=== PATIENT | male | born 1940 | race Hispanic/Latino ===

== ENCOUNTER 2018-03-28 06:37 | Day surgery (SDC) | payer MEDICARE ==
[~2018-03-28 06:37] MED LIST: ANCEF/STERILE WATER 2 GM/20 ML 2 GM/20 ML SYRINGE IV NR; NACL 0.9% 1000 ML 1,000 ML IV SCH
[2018-03-28 07:32] LABS: Basophils % (Auto) 0.8 % (0.0-1.8); Eosinophils # (Auto) 0.1 K/mm3 (0.0-0.4); Eosinophils % (Auto) 1.9 % (0.0-4.3); Hematocrit 40.3 % (35.5-45.6); Hemoglobin 13.8 gm/dl (11.8-15.2); Lymphocytes # (Auto) 1.2 K/mm3 (1.2-5.4); Mean Corpuscular HGB Conc 34 % (32-34); Mean Corpuscular Hemoglobin 33 pg (28-32); Mean Corpuscular Volume 96 fl (84-94); Monocytes # (Auto) 0.3 K/mm3 (0.0-0.8); Monocytes % (Auto) 5.1 % (0.0-7.3); Platelet Count 144 K/mm3 (140-440); Red Blood Count 4.18 M/mm3 (3.65-5.03); Red Cell Distribution Width 14.6 % (13.2-15.2)
[2018-03-28 07:42] LABS: Calcium 8.9 mg/dL (8.4-10.2)
[2018-03-28 07:43] LABS: INR 1.04 (0.87-1.13)
[2018-03-28 07:44] LABS: Partial Thromboplastin Time 28.5 Sec. (24.2-36.6)
[2018-03-28] MEDS ORDERED: HEPARIN/NS 5000 UNIT/500ML(CATH LAB) 1,000 ML IR ONE ×2 (08:28→09:24)
[2018-03-28] MEDS ORDERED: ANCEF/STERILE WATER 2 GM/20 ML 2 GM/20 ML SYRINGE IV ONE (08:29)
[2018-03-28] MEDS ORDERED: XYLOCAINE 2% INFILTRATI ONE (08:29)
[2018-03-28] MEDS ORDERED: NACL 0.9% 500 ML 500 ML ONE (08:30)
[2018-03-28] MEDS: SUBLIMAZE ONE ×8 (09:12→12:10)
[2018-03-28] MEDS: VERSED ONE ×8 (09:12→12:10)
[2018-03-28] MEDS: HEPARIN 10,000 UNITS/10 ML ONE ×4 (09:17→11:12)
--- NOTE | 2018-03-28 12:49 | Post Operative Note ---
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
--- NOTE | 2018-03-28 12:57 | Short Stay Summary ---
Short Stay Documentation Date of service: 03/28/18 Narrative H&P: admitted to [facility] lab[facility] for outpatient reconstruction of IVC and stenting of IVC and iliac veins - History H&P: obtained from office - Allergies and Medications Current Medications: Allergies No Known Allergies Allergy (Verified 03/28/18 07:01) Home Medications Medication Instructions Recorded Confirmed Last Taken Type Calcium Carbonate [Caltrate 600] 1,200 mg PO QHS 04/10/13 03/28/18 03/27/18 History Enoxaparin [Lovenox] 150 mg SQ QHS 04/10/13 03/28/18 03/27/18 History Multivitamin [Multi-Vitamin Daily] 1 each PO QHS 04/10/13 03/28/18 03/27/18 History Bisoprolol Fumarate 5 mg PO QDAY 05/27/15 03/28/18 03/27/18 History Vit C/Vit E/Lutein/Min/[place]-3 1 each PO QDAY 05/27/15 03/28/18 03/27/18 History [Ocuvite Softgel] Finasteride [Proscar] 5 mg PO DAILY 03/28/18 03/28/18 03/27/18 History Tamsulosin [Flomax] 0.4 mg PO BID 03/28/18 03/28/18 03/27/18 History Active Medications Cefazolin Sodium (Ancef/Sterile Water 2 Gm/20 Ml) 2 gm in 20 mls @ 80 mls/hr IV PREOP NR; Protocol Stop: 03/28/18 23:59 Last Admin: 03/28/18 09:15 Dose: 20 mls Sodium Chloride (Nacl 0.9% 1000 Ml) 1,000 mls @ 42 mls/hr IV DIRECT MILKA Last Admin: 03/28/18 08:15 Dose: 42 mls/hr - Brief post op/procedure progress note Date of procedure: 03/28/18 Procedure: 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 Post-op diagnosis: same Findings: 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, 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, successfully crossed and stented with wallstents Procedure: angioplasty with stents of chronically occluded IVC, angioplasty and stenting of bilateral external iliac veins, IVUS of IVC and bilateral common and external iliac veins, duplex guided cannulation of bilateral common femoral veins, and Right IJV Anesthesia: other (moderate sedation-start time 0912 end time 1215 total time 183 minutes) Surgeon: KAREN LU Orbitread Operator: RICK MITCHELL Estimated blood loss: none Pathology: none Condition: stable Disposition: same day - Hospital course Hospital course: no bleeding - Disposition Condition at discharge: Stable Disposition: TO HOME OR SELFCARE - Discharge Diagnoses (1) Stricture, vein Status: Chronic (2) Chronic venous hypertension (idiopathic) with inflammation of bilateral lower extremity Status: Chronic Short Stay Discharge Plan Activity: advance as tolerated Weight Bearing Status: Weight Bear as Tolerated Diet: regular Wound: keep clean and dry Special Instructions: no heavy lifting Follow up with: ELENITA HOOD MD [Primary Care Provider] - 7 Days KARNE LU MD [Staff Physician] - 14 Days
[2018-03-28] MEDS ORDERED: TYLENOL PO ONE (13:08)
[2018-03-28] MEDS ORDERED: TYLENOL ONE (13:11)
[2018-03-28 15:22] VITALS: BP 130/64
--- NOTE | 2018-03-30 08:07 | Operative Report ---
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 OPERATIVE PROCEDURE: 1. Percutaneous angioplasty with stents of chronically occluded inferior vena cava. 2. Angioplasty and stenting of the bilateral external iliac veins. 3. Intravascular ultrasound of the inferior vena cava, bilateral common iliac veins, bilateral external iliac veins, duplex guided cannulation of the bilateral common femoral veins and the right internal jugular vein. SURGEON: Lan Hampton MD DUDE WRANGLER: Dr. Yobani Powell. ANESTHESIA: Moderate sedation. START TIME: 0912. END TIME: 1215. Total moderate sedation time 183 minutes. ESTIMATED BLOOD LOSS: Minimal. PATHOLOGY: None. CONDITION: Stable/improved. SURGICAL HISTORY: The patient with severe venous rubor of the gluteal and lower extremities. Nonhealing ulcerations in the perineum. Severe pain on standing and sitting, relieved only by lying down. The patient with known inferior vena cava occlusion subsequent to an inferior vena cava filter placed more than 6 years ago for appropriate indications of DVT and PE and the patient could not be anticoagulated. Previous venography showed iliac veins to be stenotic but patent, the iliac confluence was patent, but the inferior vena cava was occluded from the confluence to the level of the left renal vein. 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 DESCRIPTION OF PROCEDURE: The patient in the supine position, the right neck and chest and both groins were then prepped and draped using standard sterile technique. Attention was then turned to the right internal jugular vein, which was evaluated by duplex scan and found to be patent, but small. The patient had previously had a vena cava filter and a central line in that vessel. The vessel, however, was considered patent and therefore, using duplex scanning and direct visualization through anesthetized skin, I was able to cannulate the vein and pass a wire into the superior vena cava. A 6-Indonesian introducer was placed and a sheath was then advanced all the way to the superior vena cava. A pigtail catheter was then advanced all the way to just above the vena cava filter and contrast was injected, which showed a patent, but small vena cava above the renal vein. I then replaced the pigtail with a guidewire and then advanced the [place] sheath all the way to the level of the filter. Using an Advantage wire and the obturator, I was able to carefully advance a wire distally and using a torque maneuver, I was able to gradually advance the wire all the way through the inferior vena cava to what appeared to be the level of the confluence of the iliac veins. It was not clear whether we were intraluminal or not and therefore, at this point, an access was obtained to the right common femoral vein using duplex guidance and the guidewire was advanced retrograde into the cava confluence. Access was also obtained in the left iliac vein in a similar fashion. The wires were advanced to the confluence and then we advanced a snare wire and attempted to capture the end of the Advantage wire. Contrast was injected and multiplanar views were used to confirm that we were intraluminal. This procedure because we were working from both the jugular vein side and the femoral side, we required 2 physicians to manipulate the wire and to snare the wire. In fact, the entire procedure was performed with 2 physicians, golf player assistant because of the considerable manipulation that was required from both ends. Ultimately, we were able to snare the wire and pull it retrograde out through the iliac sheath on the left. We then had access all the way through the iliac system to the jugular system. I advanced a long 4 mm balloon and was able to get it through the filter. This required considerable manipulation and dilatation using the sheath as the balloon kept hanging up on the edge of the filter. Ultimately, I was able to get it past the filter and then created a small channel through the inferior vena cava. Contrast showed the small channel. We attempted to cannulate that channel from below and advanced the wire through the filter. Ultimately, this proved unsuccessful and therefore we then readvanced the sheath all the way through from the groin into the inferior vena cava along the single wire. We gradually dilated that up and then took a long sheath and advanced it from top down. I then removed the obturator and passed a second wire which was then snared and brought out through the right groin. Then, we now had two wires all the way through the vena cava. I retracted the sheath backwards and then we proceeded to perform angioplasty of both the iliacs and the vena cava. We used a series of gradually increasingly larger balloons starting with 7 balloons and ultimately ending with 9 mm balloons. Once we had dilated the vena cava all the way to the renals, we then advanced twin 16 x 90 Wallstents and then deployed them at the level of the top of the filter, which was within the patent portion of the inferior vena cava. These were then posted using the twin 9 x 60 balloons. We then advanced intravascular ultrasound all the way to the renals and withdrew it. The stents within the vena cava looked good, but the external iliacs on both sides were severely stenotic. There was a greater than 80% stenosis in several different places. We then deployed a 16 x 90 balloon beginning in the proximal common extending through to the distal external iliac on the right side, then the left side. We also posted these stents with 14 balloons, thus flaring them into the iliacs. Repeat contrast injection, which required bilateral injections showed that the iliac systems were now widely patent and the vena cava was also patent. The previously documented is considerable cross pelvic circulation and multiple retroperitoneal and abdominal wall collaterals that were greatly reduced or absent. At this point, we felt that we had achieved the vena caval reconstruction and there was no extravasation. The procedures were then terminated by removing all guidewires and catheters, and all the sheaths were removed and counter pressure held for hemostasis. It cannot be emphasized enough that this was a 2-physician procedure requiring simultaneous educated skill sets of both Interventional Radiology and Vascular Surgery manipulating wires and catheters from 2 different approaches both above and below simultaneously in order to achieve these results. A single surgeon could not have completed this procedure. Hemostasis was obtained with counter pressure. The patient was returned to the recovery area in stable condition having tolerated the procedure well. Sponge and needle counts were correct. JOB# [id number] [facility]
== END 2018-03-28 15:00 | disposition home or self-care (01) ==
LOC: CATHLABREC 06:37
PROVIDERS: ATTEND Surgery Vascular Surgery
DX: I87.1 Compression of vein (principal); I87.323 Chronic venous hypertension (idiopathic) with inflammation of bilateral lower extremity; I10 Essential (primary) hypertension; M19.90 Unspecified osteoarthritis, unspecified site; I73.9 Peripheral vascular disease, unspecified; G47.30 Sleep apnea, unspecified; I25.2 Old myocardial infarction; N40.0 Benign prostatic hyperplasia without lower urinary tract symptoms; F17.210 Nicotine dependence, cigarettes, uncomplicated; Z79.01 Long term (current) use of anticoagulants; Z79.899 Other long term (current) drug therapy; Z90.49 Acquired absence of other specified parts of digestive tract; Z90.5 Acquired absence of kidney; Z86.711 Personal history of pulmonary embolism; Z86.718 Personal history of other venous thrombosis and embolism; Z98.890 Other specified postprocedural states
CPT/HCPCS: 36415; 37238; 37239; 37252; 37253; 75822; 76937; 80048; 85025; 85610; 85730; 99156; 99157; C1725; C1751; C1753; C1769; C1773; C1876; C1887; C1894; J0690; J1644; J2250; J3010; J7030; J7040; Q9967